=== PATIENT | female | born 1990 | race African-American/Black ===

== ENCOUNTER 2017-07-15 21:37 | Inpatient (IN) | payer OTHER ==
[2017-07-16] MEDS ORDERED: BUTORPHANOL TARTRATE 1 MG/ML VIAL IVPB ONE ×2 (00:56→05:50)
[2017-07-16] MEDS ORDERED: PROMETHAZINE HCL 25 MG/1 ML VIAL IVPUSH ONE (00:56)
--- NOTE | 2017-07-16 01:04 | HP ---
Past Medical History - Admission Chief Complaint: labor History of Present Illness: 26 yo @ 39 6//7 wks by first trimester ultrasound, EDC uncomplicated Patient presents witch chief complaint of contractions. She was seen today in the office for her routine visit. She noticed irregular contractions after the visit which increased in intensity and frequency at around 1900 last evening. She endorses movement, denies leakage of fluid, vaginal bleeding or contractions. History Source: Patient Limitations to Obtaining History: No Limitations - Past Medical History Cardiovascular: No: HTN Pulmonary: No: Asthma Gastrointestinal: No: GERD ...: 1 ...Para: 0 ...LMP: 10/10/16 ... Weeks Gestation by Dates: 39.5 ...EDC by Dates: 07/17/17 Heme/Onc: No: Anemia - Past Surgical History Past Surgical History: Yes: None Hx Myomectomy: No Hx Transabdominal Cerclage: No - Alcohol/Substance Use Hx Alcohol Use: No History of Substance Use: reports: None Home Medications - Allergies Allergies/Adverse Reactions: Allergies Allergy/AdvReac Type Severity Reaction Status Date / Time No Known Allergies Allergy Verified 07/15/17 22:55 - Home Medications Home Medications: Ambulatory Orders Vitamins 1 tab PO DAILY 07/15/17 Family Disease History - Family Disease History Family History: Denies Review of Systems - Review of Systems Constitutional: reports: No Symptoms Neck: reports: No Symptoms Cardiovascular: reports: No Symptoms Respiratory: reports: No Symptoms Gastrointestinal: reports: No Symptoms Genitourinary: reports: No Symptoms Musculoskeletal: reports: No Symptoms Integumentary: reports: No Symptoms Neurological: reports: No Symptoms Endocrine: reports: No Symptoms Psychiatric: reports: No Symptoms Physical Exam - Maternity Vital Signs: Vital Signs Temperature 98.0 F 07/15/17 22:20 Pulse Rate 80 07/15/17 22:20 Respiratory Rate 22 07/15/17 22:20 Blood Pressure 126/85 07/15/17 22:20 O2 Sat by Pulse Oximetry (%) Constitutional: Yes: Well Nourished, No Distress, Calm Cardiovascular: Yes: Regular Rate and Rhythm Lungs: Clear to auscultation - Abdominal Exam/OB Number of Fetuses: Single Presentation: Vertex Contractions: Yes Intensity: Mod/Strong Monitor Mode: External Category: I Accelerations: Non-Uniform Decelerations: None - Vaginal Exam/OB Dilatation (cm): 2 Effacement (%): 100 Amniotic Membrane Status: Bulging Station: -2 - Physical Exam Edema: LLE: Trace, RLE: Trace ...Motor Strength: WNL Psychiatric: Yes: Alert, Oriented - Labs Lab Results: PNL - O positive, antibody negative, RPR NR; HBS Ag negative; HCV negative; HIV negative, Rubella immune, GTT 127, GBS negative Hemorrhage Risk Assessment - Risk Factors Medium Risk Factors: Yes: None High Risk Factors: Yes: Active bleeding on admission Risk Score: 3 Risk Level: High Risk Assessment/Plan 26 yo @ 39 wks, active labor 1. Admit to L&D 2. Consents reviewed and signed 3. Admission labs ordered 4. GBS negative 5. Patient desires IV medication for pain control 6. Category I FHT, patient does not require intervention
[2017-07-16 01:18] VITALS: BMI 31.7
[2017-07-16] MEDS: ELECTROLYTE-148 SOLN 1,000 ML IV SCH ×2 (01:35→13:25)
[2017-07-16] MEDS ORDERED: CLINDAMYCIN 600MG PREMIX IVPB 600 MG/50 ML BAG IVPB SCH (02:00)
[2017-07-16 02:07] LABS: BASOPHIL 0.6 % (0-2.0); EOSINOPHIL 0.3 % (0-4.5); MCH 30.3 pg (25.7-33.7); MEAN PLT VOLUME 9.6 fl (7.5-11.1); NEUTROPHILS 86.2 % (42.8-82.8); PLATELET COUNT 227 K/MM3 (134-434); RDW 14.1 % (11.6-15.6); WHITE BLOOD COUNT 13.2 K/mm3 (4.0-10.0)
[2017-07-16 02:28] LABS: INR 0.98 (0.82-1.09); PROTHROMBIN TIME (PATIENT) 11.1 SEC (9.98-11.88)
[2017-07-16 02:29] LABS: ANION GAP 11 (8-16); CALCIUM 9.1 mg/dL (8.5-10.1); CO2 22 mmol/L (21-32); CREATININE 0.5 mg/dL (0.55-1.02); GLUCOSE,RANDOM 92 mg/dL (74-106)
[2017-07-16 02:31] LABS: ACTIVATED PTT 29.3 SECONDS (26.9-34.4)
[2017-07-16 02:48] LABS: HIV 1 & 2 AB NEGATIVE; HIV 1 AGp24 NEGATIVE
[2017-07-16] MEDS ORDERED: PROMETHAZINE HCL 25 MG/1 ML VIAL IVPB ONE (05:50)
--- NOTE | 2017-07-16 07:23 | PN ---
Ante-Partal Exam - Subjective Subjective: Patient reports back pain with contractions Mild relief with stadol No leakage of fluid or vaginal bleeding Vital Signs: Vital Signs Temperature 98.6 F 07/16/17 06:00 Pulse Rate 84 07/16/17 07:00 Respiratory Rate 20 07/16/17 07:00 Blood Pressure 133/81 07/16/17 07:00 O2 Sat by Pulse Oximetry (%) Bleeding: No Headache: No Visual changes: No Right upper quadrant pain: No - Contractions Contractions: Yes Regularity: Regular Intensity: Strong Monitor Mode: External - Exam during Labor Heart Rate: 130 Variability: Moderate Category: I Monitor Accelerations: Present Monitor Decelerations: None Exam: Vaginal Dilatation (cm): 4 Effacement (%): 100 Amniotic Membrane Status: Ruptured Amniotic Fluid: Clear Presentation: Vertex Station: -1 - Intrapartum Hemorrhage Risk Medium Risk Factors: None High Risk Factors: None Risk Score: 0 Risk Level: Low Risk - Assessment/Plan Assessment/Plan: 26 yo active labor 1. Good cervical change 2. GBS negative 3. Category I FHT 4. Will continue expectant management
[2017-07-16] MEDS: FENTANYL/BUPIVACAINE/NS/PF - PCEA - 50 ML DISP.SYRIN EP SCH (08:45)
[2017-07-16] MEDS ORDERED: TUBERCULIN PPD 5 TU/0.1ML SYRINGE (IN PATIENT USE ONLY) ID ONE (09:00)
--- NOTE | 2017-07-16 09:09 | PN ---
Progress Note (short form) - Note Progress Note: Called to patient bedside for deceleration to 60 bpm - 90 bpm for approximately 7 minutes BP 94/51 --> 56/43 Patient given O2 via facemask, change in maternal position L lateral --> R lateral Anesthesia at bedside Improvement in heart rate to 160 bpm, minimal variability BP improvement to 127/47 --> 137/83 Will continue to monitor
[2017-07-16] MEDS: OXYTOCIN 15 UNITS/ LR 250 ML 15 UNIT/250 ML INFUS.BAG IVPB SCH (14:10)
--- NOTE | 2017-07-16 14:16 | PN ---
Progress Note, Labor Vaginal Exam #2 Labor Exam Date: 07/16/17 Labor Exam Time: 14:00 (EFW - 7.5lb) Heart Rate (range): 150s, + accels, no decels Dilatation: 5 Effacement (%): 100% Amniotic Membrane Status: Ruptured (clear fluid) Presentation: Vertex/Position Station: -2 Remarks: 26yo P0 At 39+ wks in spontaneous labor s/p Epidural, comfortable s/p AROM, clear fluid Reassuring MF well being Protracted labor Start Pitocin fpr augmentation, since ctx now irregular Plan discussed with patient, she undestands, all questions answered
--- NOTE | 2017-07-16 17:54 | PN ---
Progress Note, Labor Vaginal Exam #3 Labor Exam Date: 07/16/17 Labor Exam Time: 19:25 Heart Rate (range): 150's decreased varriability, occasional moderate Dilatation: 7cm Effacement (%): 100% Amniotic Membrane Status: Ruptured Presentation: Vertex/Position Station: -1 Remarks: 26yo P0 @39+ wks uncomfortable, asking for top off LLdecube, O2 by face mask Scalp electrode placed, + accel, improved variability Catecogy 2 FHR, overall very reasuring Continue monitoring progress of labor, Pitocin @ 3mU/min Anesthesia contacted
--- NOTE | 2017-07-16 19:59 | PN ---
Progress Note, Labor Vaginal Exam #4 Labor Exam Date: 07/16/17 Labor Exam Time: 19:40 (100.3 fever) Heart Rate (range): 160's + accels, no decels Dilatation: FD Effacement (%): 100% Amniotic Membrane Status: Ruptured Presentation: Vertex/Position Station: +2 Remarks: 26yo P0 @ 39+ Just dx with Chorioamnionitis, start Amp/Gent now does not have enough sensation will turn off epidural and start pushing MF status reassuring Peds at delivery
[2017-07-16] MEDS ORDERED: BISACODYL 10 MG SUPP.RECT RC PRN (20:52)
[2017-07-16] MEDS ORDERED: BENZOCAINE 20% 57 GM BOTTLE TP PRN (20:52)
[2017-07-16] MEDS ORDERED: WITCH HAZEL 50% (TUCKS) 40 PAD/JAR PAD TP PRN (20:52)
[2017-07-16] MEDS ORDERED: BENZOCAINE 28 GM HEMORRHOIDAL OINTMENT TP PRN (20:52)
[2017-07-16] MEDS ORDERED: IBUPROFEN 600 MG TABLET (FP) PO PRN (20:52)
[2017-07-16] MEDS ORDERED: ACETAMINOPHEN 325 MG TABLET (FP) PO PRN (20:52)
[2017-07-16] MEDS ORDERED: METHYLERGONOVINE MALEATE 0.2 MG/1 ML AMP IM PRN (20:52)
--- NOTE | 2017-07-16 20:52 | PN ---
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
[2017-07-16] MEDS ORDERED: AMPICILLIN - 2 GM in SODIUM CHLORIDE 100 ML IVPB ONE (20:57)
[2017-07-16] MEDS ORDERED: GENTAMICIN INJECTION 100 MG in SODIUM CHLORIDE 97.5 ML IVPB ONE (21:00)
[2017-07-16] MEDS ORDERED: D5W-LR W/ 20 UNITS OXYTOCIN 20 UNIT/1,000 ML INFUS.BAG IV SCH (21:00)
[2017-07-16 21:34] LABS: VENOUS BLOOD GAS HCO3 21.3 meq/L (19-25); VENOUS PH 7.32 (7.32-7.42)
[2017-07-16] MEDS: FERROUS SO4 325 MG TABLET (FP) PO SCH (22:55)
[2017-07-17] MEDS: CLINDAMYCIN 600MG PREMIX IVPB 600 MG/50 ML BAG IVPB SCH ×2 (01:17→11:21)
[2017-07-17] MEDS ORDERED: AMPICILLIN - 2 GM in SODIUM CHLORIDE 100 ML IVPB ONE (02:00)
[2017-07-17] MEDS ORDERED: GENTAMICIN 80 MG PREMIXED IVPB 80 MG/100 ML BAG IVPB ONE (02:00)
[2017-07-17] MEDS ORDERED: GENTAMICIN IVPB ONE (02:01)
[2017-07-17] MEDS ORDERED: SODIUM CHLORIDE IVPB ONE (02:01)
--- NOTE | 2017-07-17 08:26 | PN ---
Progress Note (short form) - Note Progress Note: ppd 1 doing well, no c/o no excess vaginal bleeding CBC, BMP 07/16/17 01:20 07/16/17 01:20 Last Vital Signs Temp Pulse Resp BP Pulse Ox 98.1 F 74 20 128/74 100 07/17/17 05:41 07/17/17 05:41 07/17/17 05:41 07/17/17 05:41 07/16/17 08:55 abdomen soft, uterus firm, non tender lochia mild ,no odor no calf tenderness plan ambulate , cbc
[2017-07-17 09:14] LABS: MCH 29.8 pg (25.7-33.7); MCHC 32.9 g/dl (32.0-36.0); MEAN CELL VOLUME 90.5 fl (80-96); MEAN PLT VOLUME 9.2 fl (7.5-11.1); PLATELET COUNT 220 K/MM3 (134-434); RDW 14.3 % (11.6-15.6); WHITE BLOOD COUNT 20.7 K/mm3 (4.0-10.0)
[2017-07-17 11:16] LABS: METAMYELOCYTE 1 % (0-2); PLATELET ESTIMATE ADEQUATE; TOTAL CELLS COUNTED 100
[2017-07-17] MEDS: FERROUS SO4 325 MG TABLET (FP) PO SCH ×2 (11:26→22:00)
[2017-07-17] MEDS: PRENATAL VITAMINS W/ FOLIC ACID TABLET (FP) PO SCH (11:26)
[2017-07-17] MEDS: ELECTROLYTE-148 SOLN 1,000 ML IV SCH (19:35)
[2017-07-17] MEDS: FENTANYL/BUPIVACAINE/NS/PF - PCEA - 50 ML DISP.SYRIN EP SCH (19:35)
[2017-07-17] MEDS: OXYTOCIN 15 UNITS/ LR 250 ML 15 UNIT/250 ML INFUS.BAG IVPB SCH (19:35)
[2017-07-17] MEDS ORDERED: SENNOSIDES/DOCUSATE COMBO (SENNA PLUS) TABLET (UD) PO PRN (22:00)
[2017-07-17 23:23] VITALS: PULSE 68
[2017-07-18 08:52] VITALS: BP 126/87; TEMP 98.3
[2017-07-18] MEDS: FERROUS SO4 325 MG TABLET (FP) PO SCH (10:01)
[2017-07-18] MEDS: PRENATAL VITAMINS W/ FOLIC ACID TABLET (FP) PO SCH (10:01)
[2017-07-18 16:41] LABS: BASOPHIL 0.5 % (0-2.0); EOSINOPHIL 1.8 % (0-4.5); MCH 30.8 pg (25.7-33.7); MCHC 34.2 g/dl (32.0-36.0); MEAN CELL VOLUME 90.2 fl (80-96); MEAN PLT VOLUME 9.1 fl (7.5-11.1); PLATELET COUNT 239 K/MM3 (134-434); RDW 14.4 % (11.6-15.6); WHITE BLOOD COUNT 12.3 K/mm3 (4.0-10.0)
--- NOTE | 2017-07-19 09:21 | DS ---
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 Vital Signs: Vital Signs Temperature 98.3 F 07/18/17 08:49 Pulse Rate 68 07/18/17 08:49 Respiratory Rate 18 07/18/17 08:49 Blood Pressure 126/87 07/18/17 08:49 O2 Sat by Pulse Oximetry (%) 100 07/16/17 08:55 Constitutional: Yes: Well Nourished Eyes: Yes: WNL Neck: Yes: WNL Cardiovascular: Yes: WNL Respiratory: Yes: WNL Gastrointestinal: Yes: WNL, Normal Bowel Sounds ...Rectal Exam: Yes: WNL Renal/: Yes: WNL Pelvis: Yes: WNL Vaginal Exam: Yes: Normal ....Post : Yes: Uterus firm, Uterus non-tender Breast(s): Yes: WNL Musculoskeletal: Yes: WNL Extremities: Yes: WNL Integumentary: Yes: WNL Neurological: Yes: WNL ...Motor Strength: WNL Psychiatric: Yes: WNL Labs: CBC, BMP 07/18/17 16:25 07/16/17 01:20 Delivery - Delivery Vaginal Delivery: No Problems Type of Anesthesia: Epidural Episiotomy/Laceration: None EBL (cc): 300 (Cord around the neck x 1) Delivery, Single - Stages of Labor Date 1st Stage Initiatied: 07/16/17 Time 1st Stage Initiated: 08:45 Date 2nd Stage Initiated: 07/16/17 Time 2nd Stage Initiated: 19:40 Date of Delivery: 07/16/17 Time of Delivery: 20:24 Time Placenta Delivered: 20:26 - Condition of Referral Management Liaison/Account Representative Present: Yes Name: Yudi Barney Gender: Male Position: OA Total Hours ROM (Hrs/Mins): [id number] - 1 Minute Total Score: 9 5 Minutes Total Score: 9 - Feeding Plan Initial Plan: Elected not to breastfeed exclusively throughout hospitalization Benefits of Exclusively reinforced: Yes Discharge Summary Reason For Visit: LABOR ADMIT Condition: Good - Instructions Diet, Activity, Other Instructions: Physical activity Resume your normal everyday activity as tolerated no heavy lifting or exercise until seen by your surgeon. You may walk unlimited conner of and climb stairs. You may resume driving the car when you feel safe and comfortable behind the wheel. No sexual activity as instructed. Wound care If you have a bandage, leave it on, and keep dry for 48-72 hours. After that time discard the outer bandage. If they are tapes on the skin under the out of bandage leave them in place. They will peel off in the next 7 to 10 days. Do Not Peel them off. You may shower the day after surgery. If there are tapes present on the skin, you may shower over them. Diet There are no dietary restrictions. Eat healthy, high-fiber foods. Drink 6 to 8 glasses of liquid each day. This will assist in keeping your bowels are regular. Pain management You may take Tylenol or acetaminophen or Ibuprofen (for example, Motrin, Advil etc.) from my pain prescription medication is ordered should be taken as prescribed for moderate to severe pain. Call MD for any of the following: Severe pain not relieved by medication Fever of 101 or higher Excessive bleeding or drainage on dressing Inability to urinate Referrals: Gelnna Rodriguez MD [Staff Physician] - Disposition: HOME - Home Medications Comprehensive Discharge Medication List: Ambulatory Orders Vitamins 1 tab PO DAILY 07/15/17
--- NOTE | 2017-07-22 15:24 | PATH ---
Surgical Pathology Report Patient Name: [facility]. Rec. 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 Specimen(s) Received PLACENTA Clinical History , 39.6 weeks gestation Term delivery with low grade temperature and foul odor from amniotic fluid Status post vaginal delivery, rule out chorioamnionitis Final Diagnosis PLACENTA, VAGINAL DELIVERY: 387 g THIRD TRIMESTER PLACENTA WITH SMALL INTRAPARENCHYMAL INFARCTS (LESS THAN 10% OF PLACENTAL SURFACE), ACUTE CHORIOAMNIONITIS, AND TRIVASCULAR UMBILICAL CORD. Electronically Signed Airam Dumont M.D. Gross Description The specimen is received fresh labeled placenta and is a 387 gram, 15.5 x 15.0 x 2.5 cm. placenta with attached membranes and umbilical cord. The attached membranes are mckinney, translucent with focal opacities and insert marginally. The umbilical cord measures 20 cm. in length and averages 1.1 cm. in diameter. The cord inserts eccentrically, 1 cm. to the nearest margin. No true knots or strictures are identified. Cut surface of the umbilical cord reveals 3 vessels. The surface is gonzalez-blue with minimal fibrin deposition and appropriate caliber vessels. The maternal surface is red-brown and intact. Sectioning reveals 2 mckinney, firm intraparenchymal lesions measuring 1.5 and 2.3 cm in greatest dimension. The remaining placental parenchyma is red-brown and spongy. Riveter sections are submitted in 4 cassettes as follows: 1-membrane rolls and umbilical cord; 2-3-lesions; 4-additional agency sales representative placenta. 07/20/201707/20/2017
== END 2017-07-18 18:00 | disposition home or self-care (01) | DRG 775 ==
LOC: JDEL 21:37 → JLDR 07-16 00:45 → J3W 07-16 22:17
PROVIDERS: ADMIT Obstetrics & Gynecology; ATTEND Obstetrics & Gynecology
PROC: 10E0XZZ Delivery of Products of Conception, External Approach (ICD-10-PCS; principal; 2017-07-16)
DX: O41.1230 Chorioamnionitis, third trimester, not applicable or unspecified (principal); O63.1 Prolonged second stage (of labor); O69.81X0 Labor and delivery complicated by cord around neck, without compression, not applicable or unspecified; O77.0 Labor and delivery complicated by meconium in amniotic fluid; Z3A.39 39 weeks gestation of pregnancy; Z37.0 Single live birth
CPT/HCPCS: 36415; 59025; 59409; 80048; 82803; 85025; 85610; 85730; 86593; 86850; 86900; 86901; 87389; 88307-TC